=== PATIENT | male | born 1990 | race African-American/Black ===

== ENCOUNTER 2024-01-04 14:46 | Inpatient (IN) | payer SELFPAY ==
[~2024-01-04] VITALS: Ht 180.3 cm; Wt 89.8 kg
[~2024-01-04 14:46] MED LIST: NAPR-1176 MT
[2024-01-04 14:55] VITALS: O2SAT 98
[2024-01-04] MEDS: NALOXONE HCL 0.4MG/ML 1ML VIAL IV PRN (15:50)
[2024-01-04] MEDS: SODIUM CHLORIDE 0.9% 1,000 ML IV ONE (15:51)
[2024-01-04] MEDS: ONDANSETRON HCL 4MG/2ML INJ IV STA (15:51)
[2024-01-04 18:17] LABS: BASOPHILS % 0.8 % (0.0-2.0); EOSINOPHILS % 1.7 % (0.0-5.0); HEMATOCRIT. 40.7 % (42.0-52.0); HEMOGLOBIN. 13.9 g/dL (14.0-18.0); LYMPHOCYTES % 46.8 % (20.0-50.0); MEAN CORPUSCULAR HEMOGLOBIN 28.2 pg (28.0-32.0); MEAN CORPUSCULAR HGB CONC 34.1 g/dL (31.0-37.0); MEAN CORPUSCULAR VOLUME 82.7 fL (80.0-94.0); MEAN PLATELET VOLUME 7.5 fl (7.4-10.4); MONOCYTES % 6.8 % (2.0-8.0); NEUTROPHILS % 43.9 % (40.0-76.0); PLATELET 460 x1000/uL (130-400); RED BLOOD CELL COUNT 4.93 mill/uL (4.7-6.1); RED CELL DISTRIBUTION WIDTH 15.1 % (11.6-14.6); WHITE BLOOD COUNT 6.3 x1000/uL (4.5-11.0)
[2024-01-04 18:21] LABS: CHLORIDE 105 mEq/L (98-107); POTASSIUM 3.6 mEq/L (3.5-5.1); SODIUM 138 mEq/L (136-145)
[2024-01-04 18:22] LABS: CALCIUM 9.8 mg/dL (8.7-10.4); CARBON DIOXIDE 26 mEq/L (21-32)
[2024-01-04 18:27] LABS: GLUCOSE 71 mg/dL (70-105); UREA NITROGEN BLOOD 10 mg/dL (9-23)
[2024-01-04 18:28] LABS: ETHANOL BLOOD < 10 mg/dL (<10)
[2024-01-04 18:29] LABS: ACETAMINOPHEN < 2 ug/mL (10-30)
[2024-01-04 18:36] LABS: TROPONIN I HIGH SENSITIVITY < 4 ng/L (3.0-53)
[2024-01-05] MEDS ORDERED: ONDANSETRON HCL 4MG/2ML INJ IV PRN
[2024-01-05] MEDS ORDERED: DIPHENHYDRAMINE 50MG/ML VIAL IV PRN
[2024-01-05] MEDS ORDERED: MVI, ADULT NO.1 10 ML, FOLIC ACID 1 MG, THIAMINE HCL 100 MG in SODIUM CHLORIDE 0.9% 1,0... IV NR
[2024-01-05] MEDS ORDERED: CLONIDINE 0.1MG TABLET PO PRN
[2024-01-05] MEDS ORDERED: ACETAMINOPHEN 325MG TABLET PO PRN ×2
[2024-01-05 01:00] VITALS: BP 144/92; PULSE 75; RESP 18; TEMP 97
== END 2024-01-05 17:51 | disposition left against medical advice (07) | DRG 52 ==
LOC: ER 14:46 → 5WST 21:56 → EDBEDREQ 21:59 → 6EST 01-05 01:14
PROVIDERS: ADMIT Internal Medicine; ATTEND Internal Medicine
DX: G92.8 Other toxic encephalopathy (principal); S91.301A Unspecified open wound, right foot, initial encounter; F43.10 Post-traumatic stress disorder, unspecified; S91.302A Unspecified open wound, left foot, initial encounter; Z53.29 Procedure and treatment not carried out because of patient's decision for other reasons; Y93.89 Activity, other specified; Y92.89 Other specified places as the place of occurrence of the external cause; Y99.8 Other external cause status; V29.99XA Rider (driver) (passenger) of other motorcycle injured in unspecified traffic accident, initial encounter; Z91.85 Personal history of military service
CPT/HCPCS: 36415; 71045; 80048; 80307; 80320; 80329; 84484; 85025; 93005; 99285; J2310; J2405; J3411; J3490; J7030; G0480